=== PATIENT | male | born 1970 | race Caucasian/White ===

== ENCOUNTER 2018-02-06 12:12 | Emergency (ER) | payer BC ==
[2018-02-06 13:21] LABS: ABS Basophils 0.1 10^3/ul (0-0.2); ABS Eosinophils 0.2 10^3/ul (0-0.6); ABS Lymphocytes 1.9 10^3/ul (1.0-4.8); ABS Nucleated RBC 0 10^3/ul; Eosinophil % 1.8 % (0-6); Hematocrit 44 % (42-52); Hemoglobin 14.8 g/dl (14.0-18.0); Lymphocyte % 14.4 % (25-47); Mean Corpuscular HGB Conc 34 g/dl (31-36); Mean Corpuscular Hemoglobin 29 pg (27-31); Mean Corpuscular Volume 86 fL (80-94); Mean Platelet Volume 8.1 fL (7.4-10.4); Nucleated Red Blood Cells % 0.1; Platelet Count 330 10^3/ul (150-450); Red Blood Count 5.11 10^6/ul (4.00-5.40); Red Cell Distribution Width 13 % (10.5-15); White Blood Count 13.1 10^3/ul (3.5-10.8)
--- NOTE | 2018-02-06 13:35 | ED ---
Abdominal Pain/Male - HPI Summary HPI Summary: Patient is a 47-year-old male who presents emergency department for left-sided abdominal pain 2 days. Patient notes nausea and decreased appetite. Denies fever, chest pain, shortness of breath, cough, diarrhea, constipation, vomiting. Past medical history of diabetes. Symptoms are moderate in severity. Movement makes symptoms worse. Nothing makes symptoms better. Patient also notes irritation to the tip of his penis and states he's been using [id number] Lamisil with no improvement. Patient states when he gets this infection he typically needs Diflucan. - History of Current Complaint Chief Complaint: EDAbdPain Stated Complaint: LT SIDE ABD PAIN Time Seen by Provider: 02/06/18 13:29 Hx Obtained From: Patient Pain Intensity: 8 - Allergies/Home Medications Allergies/Adverse Reactions: Allergies Allergy/AdvReac Type Severity Reaction Status Date / Time No Known Allergies Allergy Verified 02/06/18 12:17 PMH/Surg Hx/FS Hx/Imm Hx Previously Healthy: Yes - Surgical History Surgery Procedure, Year, and Place: tonsils. appendectomy Infectious Disease History: No Infectious Disease History: Denies: Traveled Outside the [place] in Last 30 Days - Family History Known Family History: Positive: Non-Contributory - Social History Occupation: Works From/At Home Lives: With Family Alcohol Use: None Substance Use Type: Reports: None Smoking Status (MU): Never Smoked Tobacco Review of Systems Constitutional: Negative Negative: Fever, Chills Cardiovascular: Negative Negative: Chest Pain Respiratory: Negative Negative: Shortness Of Breath, Cough Positive: Abdominal Pain, Nausea. Negative: Vomiting, Diarrhea Positive: other - Penile irritation. Negative: dysuria, flank pain, hematuria Neurological: Negative All Other Systems Reviewed And Are Negative: Yes Physical Exam Triage Information Reviewed: Yes Vital Signs On Initial Exam: Initial Vitals Temp Pulse Resp BP Pulse Ox 97.0 F 96 19 157/101 98 02/06/18 12:14 02/06/18 12:14 02/06/18 12:14 02/06/18 12:14 02/06/18 12:14 Vital Signs Reviewed: Yes Appearance: Positive: Well-Appearing - Pt. lying on bed in NAD. present. Skin: Positive: Warm, Dry Head/Face: Positive: Normal Head/Face Inspection Eyes: Positive: Normal, EOMI Neck: Positive: Supple Respiratory/Lung Sounds: Positive: Clear to Auscultation, Breath Sounds Present Cardiovascular: Positive: Normal, RRR Abdomen Description: Positive: Other: - Obese. Abd. is soft with diffuse tenderness to the LUQ and LLQ. No rebound tenderness or guarding. No CVA tendernes. Male Genital Exam: Positive: Other - Noted on exam performed with nurse in room , Tammy. Uncircumcised penis noted. No testicular edema or redness. Foreskin was easily retracted and not to the penis was understands to be erythematous and mildly edematous. Neurological: Positive: Normal, CN Intact II-III Psychiatric: Positive: Affect/Mood Appropriate Diagnostics - Vital Signs Vital Signs Temp Pulse Resp BP Pulse Ox 02/06/18 12:14 97.0 F 96 19 157/101 98 - Laboratory Lab Results: Lab Results 02/06/18 Range/Units 13:07 WBC 13.1 H (3.5-10.8) 10^3/ul RBC 5.11 (4.00-5.40) 10^6/ul Hgb 14.8 (14.0-18.0) g/dl Hct 44 (42-52) % MCV 86 (80-94) fL MCH 29 (27-31) pg MCHC 34 (31-36) g/dl RDW 13 (10.5-15) % Plt Count 330 (150-450) 10^3/ul MPV 8.1 (7.4-10.4) fL Neut % (Auto) 75.8 (38-83) % Lymph % (Auto) 14.4 L (25-47) % Mellette % (Auto) 7.5 H (0-7) % Eos % (Auto) 1.8 (0-6) % Baso % (Auto) 0.5 (0-2) % Absolute Neuts (auto) 10.0 H (1.5-7.7) 10^3/ul Absolute Lymphs (auto) 1.9 (1.0-4.8) 10^3/ul Absolute Monos (auto) 1.0 H (0-0.8) 10^3/ul Absolute Eos (auto) 0.2 (0-0.6) 10^3/ul Absolute Basos (auto) 0.1 (0-0.2) 10^3/ul Absolute Nucleated RBC 0 10^3/ul Nucleated RBC % 0.1 Result Diagrams: 02/06/18 13:07 02/06/18 13:07 Lab Statement: Any lab studies that have been ordered have been reviewed, and results considered in the medical decision making process. Abdominal Pain Fem Course/Dx - Course Course Of Treatment: Patient presenting with lower abdominal pain. He is afebrile. Blood pressure elevated. Patient declined pain medication. Patient had blood work and CAT scan done through triage. CBC shows mild elevation in WBC. CMP shows mildly elevated liver enzymes and glucose. CT read below per radiology. IMPRESSION: 1. DIVERTICULITIS WITHOUT LOCULATED FLUID COLLECTION TO SUGGEST ABSCESS. 2. HEPATOMEGALY WITH FATTY INFILTRATION OF THE LIVER. 3. CHOLELITHIASIS. 4. ENLARGED PROSTATE. Laboratory sign discussed with patient. Patient states that he is aware his liver enzymes are elevated and recently saw his PCP. Results were discussed and all incidental findings were discussed. Will start patient on Cipro and Flagyl. Tylenol or Motrin for pain as directed. Patient also has a mild balanitis on exam. He states that he has been using Lamisil with no improvement. Patient states he has needed Diflucan in the past. Two doses of Diflucan and clotrimazole cream prescribed. Advised increase fluids. Clear liquid diet 2-3 days. To call family doctor today for a close follow-up appointment. To return to the ER for increased pain, fever, vomiting or if concerned. Patient understands and agrees with plan. - Diagnoses Differential Diagnosis/HQI/PQRI: Appendicitis, Bowel Obstruction, Constipation, Hepatitis, Ischemic Bowel, Pancreatitis, Renal Colic, Urinary Tract Infection Provider Diagnoses: Diverticulitis, Balanitis Discharge - Sign-Out/Discharge Documenting (check all that apply): Patient Departure - Discharge Plan Condition: Good Disposition: HOME Prescriptions: Ciprofloxacin TAB* [Cipro 500 MG TAB*] 500 mg PO BID #20 tab Clotrimazole 1% CREAM* [Clotrimazole 1%*] 1 applic TOPICAL BID #60 tube Fluconazole [Diflucan 150 MG (NF)] 150 mg PO ONCE #2 tab metroNIDAZOLE [Flagyl 500 MG TAB] 500 mg PO TID #30 tab Patient Education Materials: Diverticulitis (ED), Balanitis (ED), Diverticulitis Diet (ED) Referrals: Jesus Coleman MD [Primary Care Provider] - Additional Instructions: Schedule a follow up appointment with your PCP Take antibiotic as directed Tylenol or Motrin for pain as directed Clear liquid diet 2-3 days Return to ER for fever, vomiting, increased pain or if concerned - Billing Disposition and Condition Condition: GOOD Disposition: Home
[2018-02-06 13:46] LABS: EGFR Non-African American 111.6 (>60)
[2018-02-06 14:45] LABS: Urine Appearance Clear; Urine Blood Negative (Negative); Urine Color Yellow; Urine Ketones Trace (Negative); Urine Protein 1+(30 mg/dL) (Negative); Urine Red Blood Cell Absent (Absent); Urine Specific Gravity 1.024 (1.010-1.030); Urine Urobilinogen Negative (Negative); Urine White Blood Cell Trace(0-5/hpf) (Absent)
[2018-02-06 15:40] VITALS: BP 143/86
== END 2018-02-06 15:40 | disposition home or self-care (01) ==
LOC: ED 12:12
DX: K57.32 Diverticulitis of large intestine without perforation or abscess without bleeding (principal); N48.1 Balanitis; K76.0 Fatty (change of) liver, not elsewhere classified; K80.20 Calculus of gallbladder without cholecystitis without obstruction; N40.0 Benign prostatic hyperplasia without lower urinary tract symptoms
CPT/HCPCS: 36415; 74176; 80053; 81003; 81015; 83605; 83690; 85025; 86140; 87086; 99283